=== PATIENT | female | born 1960 | race Two or more races ===

== ENCOUNTER 2019-02-26 18:25 | Emergency (ER) | payer OTHER ==
[~2019-02-26] VITALS: Ht 152.4 cm; Wt 52.2 kg
== END 2019-02-26 19:28 | disposition home or self-care (01) ==
LOC: ER 18:25
DX: S90.121A Contusion of right lesser toe(s) without damage to nail, initial encounter (principal); W22.8XXA Striking against or struck by other objects, initial encounter; Y93.89 Activity, other specified; Y92.89 Other specified places as the place of occurrence of the external cause; Y99.8 Other external cause status

== ENCOUNTER 2019-03-01 17:41 | Emergency (ER) | payer OTHER ==
[~2019-03-01] VITALS: Ht 152.4 cm; Wt 52.2 kg
== END 2019-03-01 20:05 | disposition home or self-care (01) ==
LOC: ER 17:41
DX: S90.111A Contusion of right great toe without damage to nail, initial encounter (principal); W22.8XXA Striking against or struck by other objects, initial encounter; Y93.89 Activity, other specified; Y92.89 Other specified places as the place of occurrence of the external cause; Y99.8 Other external cause status